=== PATIENT | male | born 1950 | race Caucasian/White ===

== ENCOUNTER 2018-03-07 23:59 | Emergency (ER) | payer MEDICARE, BC ==
--- NOTE | 2018-03-08 07:13 | EDM.PDOC ---
ED HPI GENERAL MEDICAL PROBLEM - General Chief Complaint: General Stated Complaint: Palpitations Time Seen by Provider: 03/08/18 00:10 Source of Information: Reports: Patient History Limitations: Reports: No Limitations - History of Present Illness INITIAL COMMENTS - FREE TEXT/NARRATIVE: Pt. presents to ER with complaints of palpitations. He states that he has been experiencing this just today. No fever or chills. He has been stressed and very active today. He states that he has not been eating or drinking well. Denies any chest pain or shortness of breath. No nausea, vomiting, or diarrhea. Onset: Today Onset Date: 03/08/18 - Related Data Allergies Allergy/AdvReac Type Severity Reaction Status Date / Time simvastatin [From Zocor] AdvReac Muscle Verified 03/08/18 00:15 Aches Home Meds: Home Meds Insulin Aspart [NovoLOG] 8 units SQ WITHMEALSANDBED 09/12/17 [History] Insulin Detemir [Levemir Flextouch] 30 unit SQ BID 09/12/17 [History] Lovastatin 20 mg PO DAILY 09/12/17 [History] metFORMIN HCl [Metformin HCl] 500 mg PO BID 09/12/17 [History] Aspirin 81 mg PO DAILY 03/08/18 [History] Past Medical History - Past Health History Medical/Surgical History: Denies Medical/Surgical History Cardiovascular History: Reports: High Cholesterol Neurological History: Reports: Migraines Endocrine/Metabolic History: Reports: Diabetes, Type II - Past Surgical History Other Cardiovascular Surgeries/Procedures: Interatrial septal, patch. Angiogram 3 years ago, good. ASD atrial septal defect ED ROS GENERAL - Review of Systems Review Of Systems: See Below Constitutional: Reports: No Symptoms HEENT: Reports: No Symptoms Respiratory: Reports: No Symptoms Cardiovascular: Reports: Palpitations Endocrine: Reports: No Symptoms GI/Abdominal: Reports: No Symptoms : Reports: No Symptoms Musculoskeletal: Reports: No Symptoms Skin: Reports: No Symptoms Neurological: Reports: No Symptoms Psychiatric: Reports: No Symptoms Hematologic/Lymphatic: Reports: No Symptoms Immunologic: Reports: No Symptoms ED EXAM, GENERAL - Physical Exam Exam: See Below Exam Limited By: No Limitations General Appearance: Alert, WD/WN, No Apparent Distress Respiratory/Chest: No Respiratory Distress, Lungs Clear, Normal Breath Sounds, No Accessory Muscle Use, Chest Non-Tender Cardiovascular: Normal Peripheral Pulses, Regular Rate, Rhythm, No Edema, No Gallop, No JVD, No Murmur, No Rub Extremities: Normal Inspection, Normal Range of Motion, Non-Tender, Normal Capillary Refill, No Pedal Edema Neurological: Alert, Oriented, CN II-XII Intact, Normal Cognition, Normal Gait, Normal Reflexes, No Motor/Sensory Deficits Skin Exam: Warm, Dry, Intact, Normal Color, No Rash Course - Vital Signs Last Recorded V/S: Last Vital Signs Temp 36.6 C 03/08/18 00:05 Pulse 79 03/08/18 00:05 Resp 16 03/08/18 00:05 BP 147/69 H 03/08/18 00:05 Pulse Ox 98 03/08/18 00:05 - Orders/Labs/Meds Orders: Active Orders 24 hr Category Date Time Status EKG 12 Lead [EKG Documentation Completion] [RC] STAT Care 03/08/18 00:02 Active Departure - Departure Time of Disposition: 01:00 Disposition: Home, Self-Care 01 Condition: Good Clinical Impression: PVC (premature ventricular contraction) - Discharge Information Instructions: Premature Ventricular Contraction, Palpitations, [id number] Referrals: PCP,Unobtain [Primary Care Provider] - Forms: ED Department Discharge Additional Instructions: Return to ER if you have palpitations that do not resolve, chest pain, or shortness of breath. Get plenty of sleep and eat and drink consistently. Of you are still having problems, follow-up in clinic. - My Orders Last 24 Hours: My Active Orders 03/08/18 00:02 EKG 12 Lead [EKG Documentation Completion] [RC] STAT - Assessment/Plan Last 24 Hours: My Active Orders 03/08/18 00:02 EKG 12 Lead [EKG Documentation Completion] [RC] STAT Plan: Return to ER if you have palpitations that do not resolve, chest pain, or shortness of breath. Get plenty of sleep and eat and drink consistently. Of you are still having problems, follow-up in clinic.
== END 2018-03-08 00:29 | disposition home or self-care (01) ==
LOC: VM.ED 23:59
DX: I49.3 Ventricular premature depolarization (principal); E11.9 Type 2 diabetes mellitus without complications; Z88.8 Allergy status to other drugs, medicaments and biological substances; Z79.899 Other long term (current) drug therapy
CPT/HCPCS: 93005; 99283-GF; 99284

== ENCOUNTER 2021-06-16 17:59 | Emergency (ER) | payer MEDICARE, BC ==
[2021-06-16] MEDS ORDERED: valACYclovir 1,000 MG Tab PO ONE (18:20)
== END 2021-06-16 18:31 | disposition home or self-care (01) ==
LOC: VM.ED 17:59
DX: B02.9 Zoster without complications (principal); E78.00 Pure hypercholesterolemia, unspecified; E11.9 Type 2 diabetes mellitus without complications; Z88.8 Allergy status to other drugs, medicaments and biological substances; Z79.82 Long term (current) use of aspirin; Z79.4 Long term (current) use of insulin
CPT/HCPCS: 99282; 99283; A9270-GY

== ENCOUNTER 2021-08-08 08:56 | Emergency (ER) | payer MEDICARE, BC ==
[2021-08-08] MEDS ORDERED: Sodium Chloride 0.9% 10 ML Syringe FLUSH PRN (09:08)
[2021-08-08] MEDS ORDERED: Ketorolac 30 MG/ML SDV IVPUSH ONE (09:08)
[2021-08-08] MEDS ORDERED: Sodium Chloride 0.9% 1,000 ML IV ONE (09:14)
[2021-08-08 09:48] LABS: ANION GAP 15.9 mmol/L (5-15); CHLORIDE,CL 106 mmol/L (98-107); ESTIMATED GFR 81 mL/min (>=60); SODIUM,NA 143 mmol/L (136-145)
[2021-08-08] MEDS ORDERED: Tamsulosin 0.4 MG Cap.ER PO ONE (10:12)
== END 2021-08-08 10:32 | disposition home or self-care (01) ==
LOC: VM.ED 08:56
DX: N13.2 Hydronephrosis with renal and ureteral calculous obstruction (principal); E11.9 Type 2 diabetes mellitus without complications; Z88.8 Allergy status to other drugs, medicaments and biological substances; Z79.4 Long term (current) use of insulin; Z79.82 Long term (current) use of aspirin; Z79.899 Other long term (current) drug therapy
CPT/HCPCS: 74176; 80053; 81001; 85025; 96374; 99284; A9270; J1885; J7030

== ENCOUNTER 2023-11-15 09:34 | Emergency (ER) | payer MEDICARE, BC | END 2023-11-15 10:30 | disposition home or self-care (01) | LOC: VM.ED 09:34 | DX: T38.3X1A Poisoning by insulin and oral hypoglycemic [antidiabetic] drugs, accidental (unintentional), initial encounter (principal); E78.00 Pure hypercholesterolemia, unspecified; E11.9 Type 2 diabetes mellitus without complications; Z79.899 Other long term (current) drug therapy; Z79.4 Long term (current) use of insulin; Z88.8 Allergy status to other drugs, medicaments and biological substances | CPT/HCPCS: 82947; 99284 ==